=== PATIENT | female | born 1945 | race Caucasian/White ===

== ENCOUNTER 2020-10-06 10:02 | Outpatient (CLI) | payer MEDICARE, SELFPAY ==
--- NOTE | ~2020-10-06 | MM_ITS ---
EXAMINATION: MM screening estela BI w larissa HISTORY: Screening mammogram TECHNIQUE: Craniocaudal and mediolateral oblique 3-D tomosynthesis images were obtained and synthetic 2-D images were generated. CAD analysis was submitted and interpreted. COMPARISON: No prior mammogram is available for comparison at this institution. BREAST PARENCHYMAL COMPOSITION: There are scattered areas of fibroglandular density. FINDINGS: Scattered bilateral benign calcifications. There is no evidence of suspicious mass, calcifi cation, or architectural distortion to suggest malignancy in either breast. There has been no suspici ous interval change. IMPRESSION: 1. No mammographic evidence of malignancy. 2. Recommend routine screening mammography in one year. BI-RADS Category 2: Benign finding(s). Reviewed, dictated and finalized at location A.
== END 2020-10-06 10:03 | disposition home or self-care (01) ==
PROVIDERS: PCP Internal Medicine; Visit Provider Internal Medicine
DX: Z12.31 Encounter for screening mammogram for malignant neoplasm of breast (principal)
CPT/HCPCS: 77063; 77067

== ENCOUNTER 2020-12-21 13:32 | Outpatient (CLI) | payer MEDICARE, SELFPAY ==
--- NOTE | ~2020-12-21 | XR_ITS ---
EXAMINATION: XR abdomen/kub 1V EXAM DATE: 12/21/2020 14:03 INDICATION: History kidney stones. TECHNIQUE: Frontal projection of the upper abdomen, frontal projection lower abdomen/pelvis for inter pretation. Comparison is made to prior examination from 03/22/2019. FINDINGS: There are cholecystectomy clips. There is expected amount of colonic stool and gas. No s mall bowel dilation, nonobstructive bowel gas pattern. There are no suspicious calcifications ident ified. There is no organomegaly suspected. Mild to moderate lumbar levoscoliosis and bilateral hip primary osteoarthritis. Moderate lumbar spondylosis. Some left basilar granulomas. IMPRESSION: No suspicious calcifications. Reviewed, dictated and finalized at location A.
== END 2020-12-21 13:33 | disposition home or self-care (01) ==
LOC: ANHIMG 13:39
PROVIDERS: PCP Internal Medicine; Visit Provider Internal Medicine
DX: N20.0 Calculus of kidney (principal); M85.80 Other specified disorders of bone density and structure, unspecified site
CPT/HCPCS: 74018

== ENCOUNTER 2021-02-26 13:38 | Outpatient (CLI) | payer MEDICARE, SELFPAY ==
--- NOTE | ~2021-02-26 | DEXA_ITS ---
Bone Density Report Name: Madeleine Ward Age: 76 Sex: Female Ethnicity: White Date of : 1945 Indication: postmenopausal; height loss; Referring Provider: Riki, Kendra Study: Bone densitometry was performed. Exam Date: February 26, 2021 Accession number: [id number] There is hypertrophic degenerative change of the lumbar spine, which results in higher than expected spine bone mineral density measurements. These spine BMD and T score and Z score measurements are not reflective of the patient's true general bone mineral density. Bone Density: Region BMD T-score Z-score Classification AP Spine (L1, L4) 1.114 0.7 3.3 Normal Femoral Neck (Left) 0.661 -1.7 0.5 Osteopenia Total Hip (Left) 0.816 -1.0 0.9 Normal Total Hip Bilateral Avg 0.769 -1.4 0.5 Osteopenia Femoral Neck (Right) 0.651 -1.8 0.4 Osteopenia Total Hip (Right) 0.722 -1.8 0.1 Osteopenia World Health Organization criteria for BMD impression classify patients as: Normal (T-score at or above -1.0), Osteopenia (T-score between -1.0 and -2.5), or Osteoporosis (T-score at or below -2.5). 10-year Fracture Risk(1): Major Osteoporotic Fracture 14% Hip Fracture 3.4% Reported Risk Factors: [place] (), Neck BMD=0.651, BMI=26.0 (1) FRAX(R) Version 3.08. Fracture probability calculated for an untreated patient. Fracture probability may be lower if the patient has received treatment. Clinical Information Provided by Patient: Has used the following medications: Vitamin D, Calcium Patient maximum height was 64 Menopause Age: 48 No regular weight bearing exercise Drinks caffeinated beverages Onset of menses at age 11 Number of children 2 Impression: The patient has low bone mass, based on the Right Total Hip T-score. The patient has an estimated ten-year risk of hip fracture of 3.4% and an estimated ten-year risk of major fracture of 14%, based on the WHO FRAX algorithm. There is hypertrophic degenerative change of the lumbar spine, which results in higher than expected spine bone mineral density measurements. These spine BMD and T score and Z score measurements are not reflective of the patient's true general bone mineral density. Discussion: BONE DENSITY IS LOW AT ONE OR MORE SKELETAL SITES. THE PATIENT'S BMD AND CLINICAL RISK FACTORS CONTRIBUTE TO THIS PATIENT'S INCREASED RISK OF FRACTURE. This patient's lowest T-score is low at one or more skeletal sites. It meets the World Health Organization's (WHO) criteria for ?low bone mass? (T-score between -1.0 and -2.5). The patient's 10-year risk of hip fracture as calculated by FRAX exceeds the threshold where pharmacological therapy is recommended by the National Osteoporosis Foundation (NOF). However, all treatment decisions require clinical judgment and consideration of individual patient factors
== END 2021-02-26 13:39 | disposition home or self-care (01) ==
PROVIDERS: PCP Internal Medicine; Visit Provider Internal Medicine
DX: M85.89 Other specified disorders of bone density and structure, multiple sites (principal)
CPT/HCPCS: 77080

== ENCOUNTER 2021-11-02 07:17 | Outpatient (CLI) | payer MEDICARE, SELFPAY ==
--- NOTE | ~2021-11-02 | MM_ITS ---
EXAMINATION: MM screening estela BI w larissa HISTORY: Screening mammogram TECHNIQUE: Craniocaudal and mediolateral oblique 3-D tomosynthesis images were obtained and synthetic 2-D images were generated. CAD analysis was submitted and interpreted. COMPARISON: 10/06/2020 bilateral screening mammogram BREAST PARENCHYMAL COMPOSITION: The breasts are almost entirely fatty. FINDINGS: Scattered bilateral benign calcifications. There is no evidence of suspicious mass, calcifi cation, or architectural distortion to suggest malignancy in either breast. There has been no suspici ous interval change. IMPRESSION: 1. No mammographic evidence of malignancy. 2. Recommend routine screening mammography in one year. BI-RADS Category 2: Benign finding(s). Reviewed, dictated and finalized at location A.
== END 2021-11-02 07:18 | disposition home or self-care (01) ==
LOC: ANHIMG 07:22
PROVIDERS: PCP Internal Medicine; Visit Provider Internal Medicine
DX: Z12.31 Encounter for screening mammogram for malignant neoplasm of breast (principal)
CPT/HCPCS: 77063; 77067

== ENCOUNTER 2022-05-01 21:22 | Inpatient (IN) | payer MEDICARE, SELFPAY ==
--- NOTE | ~2022-05-01 | XR_ITS ---
EXAMINATION: XR chest 1V portable DATE: 05/01/2022 22:08 INDICATION: Fever. TECHNIQUE: A single frontal view of the chest was obtained. COMPARISON: None. FINDINGS: Calcified bilateral lung nodules and calcified hilar and mediastinal lymph nodes are consis tent with old granulomatous disease. No pleural effusion or pneumothorax. Cardiomegaly is noted. IMPRESSION: 1. Cardiomegaly. Reviewed, dictated and finalized at location A. ANICAL DESIGN TECHNICIAN IMPRESSION: 1. Cardiomegaly.
--- NOTE | ~2022-05-01 | CT_ITS ---
EXAMINATION: CT brain wo con DATE: 05/01/2022 22:13 INDICATION: Altered mental status. TECHNIQUE: Computed tomography (CT) of the head was performed without intravenous contrast. The mA wa s adjusted according to patient size. Iterative reconstruction technique was employed. The dose-lengt h product was 605.33 mGy-cm. COMPARISON: None FINDINGS: There are scattered areas of low attenuation in the cerebral white matter. There is a 14 x 10 mm calcified extra-axial mass overlying left frontoparietal region. There is no acute ischemic inf arct or intracranial hemorrhage. The ventricles are normal in size. 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 The paranasal sinuses are clear. The orbits a re normal. The mastoid air cells are normal. IMPRESSION: 1. Mild nonspecific cerebral white matter disease, which likely represents chronic small vessel ische ana disease. 2. 14 mm calcified extra-axial mass overlying left frontoparietal region, which may be a meningioma. Reviewed, dictated and finalized at location A. NER IMPRESSION: 1. Mild nonspecific cerebral white matter disease, which likely represents user interface designer loco small vessel ischemic disease. 2. 14 mm calcified extra-axial mass overlying left frontoparietal region, which may be a meningioma.
--- NOTE | 2022-05-01 21:24 | ECG_ITS ---
Measurements Intervals [place] Rate: 100 P: 51 LA: 174 QRS: 9 QRSD: 98 T: 30 QT: 342 QTc: 441 Interpretive Statements SINUS TACHYCARDIA DELAYED PRECORDIAL R/S TRANSITION BORDERLINE T WAVE ABNORMALITY- DIFFUSE LEADS BASELINE ARTIFACT- I, II, III BORDERLINE ECG NO PREVIOUS ECG AVAILABLE FOR COMPARISON Electronically Signed On 05-02-2022 7:19:06 DIALYSIS BIOMED TECHNICIAN by Tc Godinez D.O.
[2022-05-01 21:45] VITALS: BP 144/86; PULSE 101; RESP 16; TEMP 39.3; O2SAT 98
[2022-05-01 21:49] VITALS: PULSE 98
[2022-05-01 22:01] LABS: Appearance Urine Clear (Clear); Basophils Absolute Auto 0.1 K/mm3 (0.0-0.1); Basophils Percent Auto 0.4 % (0.2-1.2); Bilirubin Urine Negative (Negative); Blood Urine 2+ (Negative); Color Urine Yellow (Yellow); Eosinophils Absolute Auto 0.1 K/mm3 (0-0.3); Eosinophils Percent Auto 0.7 % (0-4.4); Glucose Urine UA Negative (Negative); Hematocrit 40.8 % (37.0-47.0); Hemoglobin 13.4 g/dL (12.0-15.0); Immature Granulocyte Absolute 0.62 K/mm3 (0.00-0.031); Immature Granulocyte Percent A 4.1 % (0-0.5); Ketones Urine 1+ mg/dL (Negative); Leukocyte Esterase Ur Trace LEU/UL (Negative); Lymphocytes Absolute Auto 1.13 K/mm3 (0.9-3.2); Lymphocytes Percent Auto 7.6 % (18.3-44.2); Mean Corpuscular HGB Conc 32.8 g/dl (32-36); Mean Corpuscular Hemoglobin 30.8 pg (26-34); Mean Corpuscular Volume 93.8 fl (80-100); Mean Platelet Volume 9.5 fl (7.4-10.4); Monocytes Absolute Auto 0.1 K/mm3 (0.1-0.6); Monocytes Percent Auto 0.9 % (2.6-8.5); Neutrophils Absolute Auto 12.9 K/mm3 (1.3-6.7); Neutrophils Percent Auto 86.3 % (45.5-73.1); Nitrate Urine Positive (Negative); Platelet Count Result 280 k/mm3 (150-375); Protein Urine 1+ mg/dL (Negative); Red Blood Count 4.35 M/mm3 (4.2-5.4); Red Cell Distribution Width 13.3 % (11.5-14.5); Specific Grav Ur 1.015 (1.001-1.035); Urobilinogen Urine 0.2 mg/dL (<2.0); pH Urine 5.5 (5.0-9.0)
[2022-05-01] MEDS: Please add drug allergy info to patient profile. 1 EACH XX (22:03)
--- NOTE | 2022-05-01 22:08 | PC.NURSE ---
Pt to CT scan via stretcher at this time.
[2022-05-01 22:10] LABS: Bacteria Urine Trace /hpf; Mucus Urine Rare /lpf; Prothrombin Time 12.7 Seconds (11.1-14.7)
[2022-05-01 22:11] LABS: Partial Thromboplastin Time 29.7 SECONDS (22.3-36.8)
[2022-05-01 22:13] LABS: Add Urine Microscopic? YES
[2022-05-01 22:24] LABS: Alanine Aminotransferase 22 U/L (6-35); Albumin Level 4.3 g/dL (3.5-5.1); Alkaline Phosphatase 101 U/L (38-126); Anion Gap 12 mmol/L (8-16); Aspartate Amino Transferase 21 U/L (14-36); Bilirubin,Total 1.2 mg/dL (0.2-1.3); Blood Urea Nitrogen 20 mg/dL (7-17); CRP 2.6 mg/dL (<1.0); Calcium 9.1 mg/dL (8.4-10.2); Carbon Dioxide 23 mmol/L (22-30); Chloride 105 mmol/L (98-107); Estimated CRCL calculation 53 ml/min; Estimated Glomerular Filt Rate > 60; Glucose 158 mg/dL (65-110); Sodium 140 mmol/L (137-145)
[2022-05-01 22:39] VITALS: TEMP 38.9
[2022-05-01 22:40] LABS: Influenza A QL RT-PCR Negative (Negative); Influenza B QL RT-PCR Negative (Negative); SARS-CoV-2 RNA PCR Negative
--- NOTE | 2022-05-01 22:40 | ED.AMS ---
HPI - Altered Mental Status General Chief Complaint: Altered Mental Status Stated Complaint: AMS, GENERALIZED WEAKNESS Time Seen by Provider: 05/01/22 21:42 History of Present Illness HPI narrative: 77-year-old female presenting to the emergency department for evaluation of altered mental status. Daughter states today the patient became less responsive and had decreased p.o. intake and was given unwilling to ambulate. Since the patient was increasingly weak and did have a ground-level fall. No loss of consciousness. Patient does not recall having the fall. Patient denies any complaints at this time. Patient does have a fever of 102.8 upon arrival. Fever was not treated prior to arrival. Related Data Allergies Allergy/AdvReac Type Severity Reaction Status Date / Time lisinopril Allergy Swelling Verified 05/01/22 22:02 Review of Systems Review of Systems: ROS unobtainable: Yes unobtainable due to mental status PMFSH Family History Family History (Updated 05/02/22 @ 04:16 by Alanna Ford RN) Other Unknown family medical history Social History Social History Smoking status: Never smoker Alcohol intake: never Substance use: never Lack of Transportation: No Lack of Food: Never True Current Housing: I Have Housing Concerned About Future Housing: No Difficulty Paying Gas/Electric Bills: No Difficulty Paying for Meds: No Currently Unemployed: No Education: Bachelor's Degree Difficulty w/ Childcare or Family Care: No Spiritual care concerns: No Exam Narrative: APPEARANCE: Well appearing, no pain, no distress, well-nourished. HEAD: normocephalic, atraumatic. EYES: PERRLA/EOMI, conjunctivae clear. NOSE: Normal no drainage NECK: Supple. No adenopathy, no masses. RESPIRATORY: Airway patent, respirations nonlabored. Clear to auscultation bilaterally, no rales, rhonchi, wheezing. CARDIOVASCULAR: Regular rate and rhythm without murmurs rubs or gallops. ABDOMINAL: Soft, nontender, nondistended, normal bowel sounds MUSCULOSKELETAL: Moves all extremities. Strength/ROM intact, No edema, No calf tenderness. NEURO: Alert. Cranial nerves II through XII intact. Grossly intact SKIN: Warm, dry. Normal Color Course Course Emergency Course: Patient was febrile 102.8 and has a leukocytosis of 15,000. Patient also has a urinary tract infection and this was treated with Rocephin. Blood and urine cultures were pending. Patient's potassium was 3.0 and this was replaced orally. Patient was negative for influenza and COVID. Patient's family is updated the results of the work-up and plan for admission. Case was discussed with the hospitalist and patient was accepted for admission. Patient was stable at time of transfer to the floor. Vital Signs Vital signs: Vital Signs Temperature 102.8 F H 05/01/22 21:45 Pulse Rate 101 H 05/01/22 21:45 Respiratory Rate 16 05/01/22 21:45 Blood Pressure 144/86 H 05/01/22 21:45 Pulse Oximetry 98 05/01/22 21:45 Oxygen Delivery Room Air 05/01/22 21:45 Temperature 98.0 F 05/02/22 03:38 Pulse Rate 81 05/02/22 03:38 Respiratory Rate 18 05/02/22 03:38 Blood Pressure 104/53 L 05/02/22 03:38 Pulse Oximetry 97 05/02/22 03:38 Oxygen Delivery Room Air 05/02/22 04:50 MDM - Altered Mental Status Lab Data Attestation: I reviewed the patient's lab results. Result diagrams: 05/01/22 21:48 05/01/22 21:48 Labs: Lab Results 05/01/22 05/01/22 05/01/22 Range/Units 21:48 21:48 21:48 WBC 15.0 H (4.5-10.0) K/mm3 RBC 4.35 (4.2-5.4) M/mm3 Hgb 13.4 (12.0-15.0) g/dL Hct 40.8 (37.0-47.0) % MCV 93.8 (80-100) fl MCH 30.8 (26-34) pg MCHC 32.8 (32-36) g/dl RDW 13.3 (11.5-14.5) % Plt Count 280 (150-375) k/mm3 MPV 9.5 (7.4-10.4) fl Immature Gran % (Auto) 4.1 H (0-0.5) % Neut % (Auto) 86.3 H (45.5-73.1) % Lymph % (Auto) 7.6 L (18.3-44.2) %
[2022-05-01 22:41] VITALS: BP 144/86; PULSE 94; RESP 23; TEMP 38.9; O2SAT 93
[2022-05-01 23:40] VITALS: BP 107/74; PULSE 93; RESP 15; TEMP 38.2; O2SAT 95
[2022-05-02] VITALS (11 sets, daily range): BP systolic 103–115; BP diastolic 53–68; PULSE 78–100; RESP 16–20; TEMP 36.7–38.2; O2SAT 92–97; BMI 27.6
[2022-05-02] MEDS: Please add drug allergy info to patient profile. 1 EACH XX (00:09)
[2022-05-02] MEDS: POTASSIUM CHLORIDE 20 MEQ PACKET (FOR LIQUID) 40 MEQ PO (00:57)
[2022-05-02] MEDS: SODIUM CHLORIDE 0.9% IV 1,000 ML 75 ML IV CONT (00:57)
--- NOTE | 2022-05-02 04:07 | ADMGEN ---
This patient, Madeleine Ward, was admitted to 2 Medical Room 249-01. Patient/family oriented to hospital policies and general routines including ID bracelet, bed and alarms, visiting hours, pain management, procedures, bathroom and other care routines, personal items, smoking policy, room service/diet, and visiting hours. Information on how to activate the Rapid Response Team has been discussed. Patient/Family are encouraged to report perceived risks to care and to ask questions if they do not understand what they are told or what they should do.
--- NOTE | 2022-05-02 06:29 | PC.NURSE ---
Pt stated she had a medication list but daughter took it home. I asked pt if daughter could be contacted at this hour and she said her daughter might still be asleep. Pt stated she would call her daughter around 0700 to ask her to bring in the medication list today. Will let day-shift nurse know about this plan.
[2022-05-02] MEDS: ONDANSETRON INJ 4 MG/2 ML VIAL IV PUSH (06:50)
[2022-05-02 08:36] LABS: Basophils Percent Auto 0.2 % (0.2-1.2); Eosinophils Absolute Auto 0.1 K/mm3 (0-0.3); Eosinophils Percent Auto 0.2 % (0-4.4); Hematocrit 39.6 % (37.0-47.0); Immature Granulocyte Absolute 0.12 K/mm3 (0.00-0.031); Immature Granulocyte Percent A 0.6 % (0-0.5); Lymphocytes Absolute Auto 0.63 K/mm3 (0.9-3.2); Mean Corpuscular HGB Conc 32.8 g/dl (32-36); Mean Corpuscular Hemoglobin 30.2 pg (26-34); Mean Corpuscular Volume 92.1 fl (80-100); Mean Platelet Volume 9.7 fl (7.4-10.4); Monocytes Absolute Auto 0.9 K/mm3 (0.1-0.6); Monocytes Percent Auto 4.1 % (2.6-8.5); Neutrophils Absolute Auto 19.5 K/mm3 (1.3-6.7); Neutrophils Percent Auto 91.9 % (45.5-73.1); Platelet Count Result 298 k/mm3 (150-375); Red Cell Distribution Width 13.5 % (11.5-14.5); White Blood Count 21.2 K/mm3 (4.5-10.0)
[2022-05-02 08:52] LABS: Anion Gap 15 mmol/L (8-16); Blood Urea Nitrogen 20 mg/dL (7-17); Calcium 8.9 mg/dL (8.4-10.2); Carbon Dioxide 24 mmol/L (22-30); Chloride 103 mmol/L (98-107); Estimated CRCL calculation 61 ml/min; Estimated Glomerular Filt Rate > 60; Glucose 143 mg/dL (65-110); Magnesium 1.8 mg/dL (1.6-2.3); Potassium 3.4 mmol/L (3.4-5.0); Sodium 142 mmol/L (137-145)
[2022-05-02] MEDS: ENOXAPARIN 40 MG/0.4 ML SYRINGE SUB-Q (09:43)
--- NOTE | 2022-05-02 12:49 | PC.NURSE ---
On 05/02/22, the student, [April Bassett], provided care and completed [facility] documentation on this patient. I have reviewed the student's documentation and agree with the findings.
[2022-05-02] MEDS: ACETAMINOPHEN 325 MG TABLET 650 MG PO (13:54)
--- NOTE | 2022-05-02 14:10 | PM.IMHP ---
H&P: HPI History of Present Illness Date/Time: 05/02/22 14:10 Chief Complaint: Altered mental status Narrative: date of service: 05/02/2022 Madeleine Ward a 77-year-old female with a history of hypertension, hyperlipidemia, vitamin-D deficiency, carotid artery stenosis, a bowel perforation s/p colectomy and subsequent reversal 10 years ago, and kidney stones who presented to the emergency department on 05/01/2022 with concerns of altered mental status. patient does exhibit some confusion, and this most history is obtained from her daughter who was present at the bedside. The patient lives at home with her daughter, Monique, and is typically independent. Yesterday when Monique came home in the afternoon, the patient stated she was not feeling well. Her daughter helped her to lie down and noticed that she was having trouble walking into her room. After she was put into bed, Monique went downstairs and could hear the patient yelling for help. She found her sliding out of bed but was able to catch her and help her to the floor. Fortunately she sustained no injuries, she did not hit her head, and she did not lose consciousness. At that time, her daughter called EMS who evaluated the patient. The patient then refused transport to emergency department. Later that evening around 9:00 p.m., Monique notice that she was more confused, stating she was not answering questions appropriately and she was incoherent. This prompted her to again call EMS and patient was brought to the emergency department for further evaluation. In the ED, she was febrile at 1:02 a.m. 0.8, heart rate 101, additional vital signs stable, white blood cell count 15, potassium 3.0, CRP 2.6, urinalysis abnormal with positive nitrates, trace leuk esterase, 10-15 white blood cells, CXR showed cardiomegaly, and head CT showed mild nonspecific cerebral white matter disease with possible meningioma. Upon my evaluation, the patient is feeling somewhat improved, though is still exhibiting some confusion. She was oriented to self, could see her age, knew the year and the president but could not state the month, day of the week, or location. She initially stated that she was in her bedroom. The patient denies dysuria or hematuria but does endorse possibly some urinary frequency. additionally, denies flank pain, back pain, suprapubic discomfort. She Endorses fevers and chills, denies sweats, nausea, or vomiting. She has been admitted to the hospitalist service for observation. Review of Systems Review of Systems: All systems reviewed with pertinent positives and negatives as per HPI. Additionally, the patient endorses weakness and her daughter has noticed difficulty ambulating recently over the past several weeks. The patient does use a cane for ambulation. Additionally, her daughter notes mild forgetfulness over the past 3-6 months. Patient denies shortness breath, cough, chest pain, abdominal pain. states last bowel movement was yesterday. daughter notes frequent headaches but patient denies headache at this time. REPLACED BY [facility] Past Medical History Medical History (Updated 05/02/22 @ 14:23 by Nadja Velasquez PA-C) Bowel perforation Carotid artery stenosis Hyperlipidemia Hypertension Kidney stones Vitamin D deficiency Surgical History Surgical History (Updated 05/02/22 @ 14:23 by Nadja Velasquez PA-C) History of colostomy reversal History of lithotripsy History of oophorectomy Unknown right vs left History of partial colectomy s/p reversal Family History Family History Father Hypertension Heart disease Social History Social History (Updated 05/02/22 @ 14:26 by Nadja Velasquez PA-C) Social History: Lives at home with her daughter. Typically independent with most daily activities. PCP is Dr. Kendra Lyn. Designates her daughter, Monique, as her surrogate decision maker. She would like to be a full code.
[2022-05-02] MEDS: cefTRIAXone 2 GM in SODIUM CHLORIDE 0.9% IV 100 ML 200 ML IVPB (15:28)
[2022-05-02] MEDS: carvediloL 6.25 MG TABLET PO (18:12)
[2022-05-02] MEDS: SIMVASTATIN 20 MG TABLET PO (20:17)
[2022-05-03 05:03] VITALS: BP 113/53; PULSE 64; RESP 16; TEMP 36.8; O2SAT 94
[2022-05-03 06:27] LABS: Basophils Percent Auto 0.3 % (0.2-1.2); Hematocrit 38.9 % (37.0-47.0); Hemoglobin 12.7 g/dL (12.0-15.0); Immature Granulocyte Absolute 0.08 K/mm3 (0.00-0.031); Immature Granulocyte Percent A 0.7 % (0-0.5); Lymphocytes Absolute Auto 1.01 K/mm3 (0.9-3.2); Lymphocytes Percent Auto 8.9 % (18.3-44.2); Mean Corpuscular HGB Conc 32.6 g/dl (32-36); Mean Corpuscular Hemoglobin 30.2 pg (26-34); Mean Corpuscular Volume 92.6 fl (80-100); Mean Platelet Volume 9.5 fl (7.4-10.4); Monocytes Absolute Auto 0.8 K/mm3 (0.1-0.6); Monocytes Percent Auto 7.1 % (2.6-8.5); Neutrophils Absolute Auto 9.5 K/mm3 (1.3-6.7); Platelet Count Result 242 k/mm3 (150-375); Red Cell Distribution Width 13.3 % (11.5-14.5); White Blood Count 11.4 K/mm3 (4.5-10.0)
[2022-05-03 06:40] LABS: Anion Gap 10 mmol/L (8-16); Blood Urea Nitrogen 17 mg/dL (7-17); Calcium 8.8 mg/dL (8.4-10.2); Carbon Dioxide 25 mmol/L (22-30); Chloride 104 mmol/L (98-107); Estimated CRCL calculation 61 ml/min; Estimated Glomerular Filt Rate > 60; Glucose 139 mg/dL (65-110); Magnesium 1.9 mg/dL (1.6-2.3); Potassium 3.3 mmol/L (3.4-5.0); Sodium 139 mmol/L (137-145)
[2022-05-03] MEDS: ENOXAPARIN 40 MG/0.4 ML SYRINGE SUB-Q (08:57)
[2022-05-03 08:58] VITALS: PULSE 81
[2022-05-03] MEDS: LOSARTAN POTASSIUM 50 MG TABLET PO (08:58)
[2022-05-03] MEDS: carvediloL 6.25 MG TABLET PO ×2 (08:58→17:35)
[2022-05-03] MEDS: ASPIRIN 81 MG ENTERIC TABLET PO (08:58)
[2022-05-03] MEDS: CHOLECALCIFEROL 1,000 UNITS TABLET 1000 UNITS PO (08:58)
[2022-05-03] MEDS: FUROSEMIDE 20 MG TABLET PO (08:58)
--- NOTE | 2022-05-03 10:09 | PM.IMPN ---
Progress Note: A&P Assessment and Plan (1) Septicemia: Code(s): A41.9 - Sepsis, unspecified organism Status: Acute Assessment and Plan: patient septic on presentation evident by leukocytosis, fever (T-max 102.8?), tachypnea. preliminary blood cultures with growth of E coli in 2/2 aerobic and anaerobic bottless source of infection felt to be urinary tract infection (E. coli identified in urine culture) continue ceftriaxone 2 g q24h remaining afebrile today and marked improvement in leukocytosis (WBC 11.4 today), tachypnea resolved. will discontinue IV fluids today as PO intake has improved and patient is afebrile so as to avoid over-hydration (2) Acute UTI: Code(s): N39.0 - Urinary tract infection, site not specified Status: Acute Assessment and Plan: Urinalysis abnormal on presentation and patient with urinary frequency urine culture with preliminary growth of E. coli continue IV ceftriaxone while awaiting urine culture results, tailor antibiotics to culture (3) Altered mental status: Code(s): R41.82 - Altered mental status, unspecified Status: Acute Assessment and Plan: Resolved. Patient A&Ox4 today and in good spirits felt to be secondary to UTI/septicemia continue to monitor mental status (4) Ambulatory dysfunction: Code(s): R26.2 - Difficulty in walking, not elsewhere classified Status: Acute Assessment and Plan: patient having increased difficulty getting around over the past several weeks suspect acute on chronic. Likely ongoing issue secondary to deconditioning, acutely worsened due to UTI fall precautions appreciate PT/OT evaluation (5) Hypertension: Code(s): I10 - Essential (primary) hypertension Status: Acute Assessment and Plan: blood pressures have been stable on low end of normal continue losartan and carvedilol monitor BP trends (6) Abnormal head CT: Code(s): R93.0 - Abnormal findings on diagnostic imaging of skull and head, not elsewhere classified Status: Acute Assessment and Plan: head CT showed 14 mm calcified extra-axial mass overlying the left frontoparietal region which may be meningioma will need outpatient follow-up for further monitoring/surveillance Subjective Date/time seen: 05/03/22 10:09 Interval history: Date of service: 05/03/2020 Mdaeleine Ward a 77-year-old? female with a history of hypertension, hyperlipidemia, vitamin-D deficiency, carotid artery stenosis, a bowel perforation s/p colectomy and subsequent reversal 10 years ago, and kidney stones who? is seen in follow-up for septicemia secondary to UTI. She is feeling better today. Is more clear headed and is not noting as much confusion. Daughter is at the bedside and agrees. Patient denies abdominal pain, flank pain, back pain, suprapubic tenderness. she is able to void without difficulty and denies dysuria, hematuria, urgency, frequency. Denies fevers, reports some mild chills last night. No sweats. She had some nausea yesterday evening but no episodes of nausea or emesis today and she was able to tolerate breakfast. Feels that her appetite is improving and her daughter notes that she ate much more today than she did all day yesterday. She still feels a little unsteady on her feet and has not been able to walk independently. She was able to get up from bed to the chair today with assistance. She felt just slightly lightheaded upon standing. Still feels weak. Denies headaches or body aches. Review of Systems Review of Systems: All systems reviewed & are unremarkable except as noted in HPI and below Exam Narrative: General: well-nourished, well-appearing 77-year-old female, sitting up in bed, comfortable, NARD Neuro: awake, alert and oriented x4, speech clear, no focal neuro deficits noted HEENMT: normocephalic, atraumatic, EOMI, sclerae anicteric R
[2022-05-03] MEDS: POTASSIUM CHLORIDE 20 MEQ TABLET PO (10:57)
[2022-05-03 12:36] VITALS: O2SAT 94
[2022-05-03] MEDS: cefTRIAXone 2 GM in SODIUM CHLORIDE 0.9% IV 100 ML 200 ML IVPB (13:35)
[2022-05-03 14:00] VITALS: BP 116/60; PULSE 66; RESP 18; TEMP 37.6; O2SAT 95
[2022-05-03 17:35] VITALS: PULSE 84
[2022-05-03 21:23] VITALS: BP 124/60; PULSE 73; RESP 16; TEMP 37.1; O2SAT 97
[2022-05-03] MEDS: SIMVASTATIN 20 MG TABLET PO (21:28)
[2022-05-04 05:34] LABS: Hematocrit 38.7 % (37.0-47.0); Hemoglobin 12.5 g/dL (12.0-15.0); Mean Corpuscular HGB Conc 32.3 g/dl (32-36); Mean Corpuscular Hemoglobin 29.8 pg (26-34); Mean Corpuscular Volume 92.1 fl (80-100); Mean Platelet Volume 9.9 fl (7.4-10.4); Platelet Count Result 238 k/mm3 (150-375); Red Cell Distribution Width 13.2 % (11.5-14.5); White Blood Count 13.4 K/mm3 (4.5-10.0)
[2022-05-04 05:49] LABS: Anion Gap 8 mmol/L (8-16); Blood Urea Nitrogen 15 mg/dL (7-17); Calcium 8.8 mg/dL (8.4-10.2); Carbon Dioxide 25 mmol/L (22-30); Chloride 105 mmol/L (98-107); Estimated CRCL calculation 61 ml/min; Estimated Glomerular Filt Rate > 60; Glucose 134 mg/dL (65-110); Potassium 3.4 mmol/L (3.4-5.0); Sodium 138 mmol/L (137-145)
[2022-05-04 06:18] VITALS: BP 143/67; PULSE 71; RESP 14; TEMP 36.6; O2SAT 96
[2022-05-04 08:28] VITALS: PULSE 73
[2022-05-04] MEDS: ASPIRIN 81 MG ENTERIC TABLET PO (08:28)
[2022-05-04] MEDS: carvediloL 6.25 MG TABLET PO ×2 (08:28→16:58)
[2022-05-04] MEDS: ENOXAPARIN 40 MG/0.4 ML SYRINGE SUB-Q (08:28)
[2022-05-04] MEDS: CHOLECALCIFEROL 1,000 UNITS TABLET 1000 UNITS PO (08:29)
[2022-05-04] MEDS: FUROSEMIDE 20 MG TABLET PO (08:29)
[2022-05-04] MEDS: LOSARTAN POTASSIUM 50 MG TABLET PO (08:29)
[2022-05-04] MEDS: POTASSIUM CHLORIDE 20 MEQ TABLET.ER PO (08:29)
--- NOTE | 2022-05-04 12:00 | PCPTNOTE ---
Attempted therapy session, Pt eating lunch, requested therapy to come back. Will attempt again.
[2022-05-04] MEDS: SALINE 0.65% NAS SOLN 44 ML BTL 1 SPRAY NASAL (12:12)
[2022-05-04] MEDS: cefTRIAXone 2 GM in SODIUM CHLORIDE 0.9% IV 100 ML 200 ML IVPB (13:33)
[2022-05-04 14:00] VITALS: BP 127/57; PULSE 70; RESP 18; TEMP 37; O2SAT 95
--- NOTE | 2022-05-04 15:43 | PM.IMPN ---
Progress Note: A&P Assessment and Plan (1) Septicemia: Code(s): A41.9 - Sepsis, unspecified organism Status: Acute Assessment and Plan: patient septic on presentation evident by leukocytosis, fever (T-max 102.8?), tachypnea. pblood cultures with growth of E coli in 2/2 aerobic and anaerobic bottles, susceptible to ceftriaxone source of infection felt to be urinary tract infection Continue ceftriaxone 2 g q24h Patient remaining afebrile today with overall improvement in leukocytosis (2) Acute UTI: Code(s): N39.0 - Urinary tract infection, site not specified Status: Acute Assessment and Plan: Urinalysis abnormal on presentation and patient with urinary frequency urine culture with growth of >100k E coli Continue IV ceftriaxone as above (3) Altered mental status: Code(s): R41.82 - Altered mental status, unspecified Status: Resolved Assessment and Plan: Resolved. Patient is A&O x4 today [place] to be secondary to UTI/septicemia (4) Ambulatory dysfunction: Code(s): R26.2 - Difficulty in walking, not elsewhere classified Status: Acute Assessment and Plan: Patient is having difficulty getting around and feels unsteady suspect acute on chronic. Likely ongoing issue secondary to dehydration/ generalized weakness, possibly acutely worsened due to UTI implement fall precautions proceed with PT/OT. Appreciate evaluation May need to consider SNF. Appreciate care coordination following (5) Hypertension: Code(s): I10 - Essential (primary) hypertension Status: Acute Assessment and Plan: blood pressures have been stable. Last BP 143/67 continue losartan and carvedilol monitor BP trends (6) Abnormal head CT: Code(s): R93.0 - Abnormal findings on diagnostic imaging of skull and head, not elsewhere classified Status: Acute Assessment and Plan: head CT showed no 40 mm calcified extra-axial mass overlying the left frontoparietal region which may be meningioma will need outpatient follow-up for further monitoring/surveillance Subjective Date/time seen: 05/04/22 15:43 Interval history: Date of service: 05/04/2020 Madeleine Ward a 77-year-old? female with a history of hypertension, hyperlipidemia, vitamin-D deficiency, carotid artery stenosis, a bowel perforation s/p colectomy and subsequent reversal 10 years ago, and kidney stones who? is seen in follow-up for septicemia secondary to UTI. She is feeling well today. She did not sleep well last night and feels a bit tired today. Also, she has developed sinus congestion today. She denies cough, shortness of breath, fever, or chills. Denies dysuria, hematuria, urgency, frequency. No nausea or vomiting. She does endorse difficulty getting around. Today she had trouble getting out of bed and to the bedside commode, even with assistance. She states she has been having discharge full more and does not feel steady on her feet. She does not feel at this time that she could return home safely. Review of Systems Review of Systems: All systems reviewed & are unremarkable except as noted in HPI and below Exam Narrative: General: well-nourished, well-appearing 77-year-old female, sitting up in bed, comfortable, NARD Neuro: awake, alert and oriented x4, speech clear, no focal neuro deficits noted HEENMT: normocephalic, atraumatic, EOMI, sclerae anicteric Respiratory: clear to auscultation bilaterally, nonlabored breathing Cardio: regular rate, regular rhythm with S1-S2 Abdomen: nondistended, normoactive bowel sounds, soft, nontender to palpation Extremities: no edema, erythema, or tenderness to palpation, DP pulses 2+ bilaterally Skin: no rashes or lesions, warm and dry Psych: appropriate mood and affect, judgment and insight intact Objective Data Vital Signs Vital Signs: Vital Signs - 24 hr 05/03/22 17:35 05/03/22
[2022-05-04 16:58] VITALS: PULSE 73
[2022-05-04] MEDS: SIMVASTATIN 20 MG TABLET PO (20:30)
[2022-05-04 21:37] VITALS: BP 134/69; PULSE 66; RESP 17; TEMP 36.8; O2SAT 96
[2022-05-05 05:08] VITALS: BP 148/59; PULSE 62; RESP 17; TEMP 36.4; O2SAT 96
[2022-05-05 06:39] LABS: Hematocrit 44.4 % (37.0-47.0); Hemoglobin 14.4 g/dL (12.0-15.0); Mean Corpuscular HGB Conc 32.4 g/dl (32-36); Mean Corpuscular Hemoglobin 30.1 pg (26-34); Mean Corpuscular Volume 92.9 fl (80-100); Mean Platelet Volume 9.6 fl (7.4-10.4); Platelet Count Result 307 k/mm3 (150-375); Red Blood Count 4.78 M/mm3 (4.2-5.4); Red Cell Distribution Width 13.2 % (11.5-14.5); White Blood Count 10.4 K/mm3 (4.5-10.0)
[2022-05-05 07:05] LABS: Anion Gap 11 mmol/L (8-16); Blood Urea Nitrogen 17 mg/dL (7-17); Calcium 9.4 mg/dL (8.4-10.2); Carbon Dioxide 26 mmol/L (22-30); Chloride 103 mmol/L (98-107); Estimated CRCL calculation 53 ml/min; Estimated Glomerular Filt Rate > 60; Glucose 125 mg/dL (65-110); Potassium 3.4 mmol/L (3.4-5.0); Sodium 140 mmol/L (137-145)
[2022-05-05] MEDS: CHOLECALCIFEROL 1,000 UNITS TABLET 1000 UNITS PO (08:41)
[2022-05-05 08:42] VITALS: PULSE 83
[2022-05-05] MEDS: carvediloL 6.25 MG TABLET PO ×2 (08:42→17:22)
[2022-05-05] MEDS: ENOXAPARIN 40 MG/0.4 ML SYRINGE SUB-Q (08:44)
[2022-05-05] MEDS: ASPIRIN 81 MG ENTERIC TABLET PO (08:44)
[2022-05-05] MEDS: POTASSIUM CHLORIDE 20 MEQ TABLET.ER PO (08:44)
[2022-05-05] MEDS: FUROSEMIDE 20 MG TABLET PO (08:44)
[2022-05-05] MEDS: LOSARTAN POTASSIUM 50 MG TABLET PO (08:44)
[2022-05-05] MEDS: cefTRIAXone 2 GM in SODIUM CHLORIDE 0.9% IV 100 ML 200 ML IVPB (13:18)
[2022-05-05 14:00] VITALS: BP 133/61; PULSE 72; RESP 16; TEMP 36.9; O2SAT 95
--- NOTE | 2022-05-05 16:50 | PM.IMPN ---
Progress Note: A&P Assessment and Plan (1) Septicemia: Code(s): A41.9 - Sepsis, unspecified organism Status: Acute Assessment and Plan: patient septic on presentation evident by leukocytosis, fever (T-max 102.8?), tachypnea. blood cultures with growth of E coli in 2/2 aerobic and anaerobic bottles source of infection felt to be urinary tract infection received ceftriaxone 2 g q24h #4 today transition to PO Levaquin for total of 7 days of treatment per ID PharmD recommendations Patient remaining afebrile >72 hrs with overall improvement in leukocytosis (2) Acute UTI: Code(s): N39.0 - Urinary tract infection, site not specified Status: Acute Assessment and Plan: Urinalysis abnormal on presentation and patient with urinary frequency urine culture with growth of >100k E coli Transition to PO Levaquin as above based on susceptibility results (3) Altered mental status: Code(s): R41.82 - Altered mental status, unspecified Status: Resolved Assessment and Plan: Resolved. Patient is A&O x4 today [place] to be secondary to UTI/septicemia (4) Ambulatory dysfunction: Code(s): R26.2 - Difficulty in walking, not elsewhere classified Status: Acute Assessment and Plan: Patient is having difficulty getting around and feels unsteady suspect acute on chronic. Likely ongoing issue secondary to dehydration/ generalized weakness, possibly acutely worsened due to UTI implement fall precautions proceed with PT/OT. Appreciate evaluation planning for SNF. Awaiting insurance authorization. (5) Hypertension: Code(s): I10 - Essential (primary) hypertension Status: Acute Assessment and Plan: blood pressures have been stable. Last BP 133/61 continue losartan and carvedilol monitor BP trends (6) Abnormal head CT: Code(s): R93.0 - Abnormal findings on diagnostic imaging of skull and head, not elsewhere classified Status: Acute Assessment and Plan: head CT showed no 40 mm calcified extra-axial mass overlying the left frontoparietal region which may be meningioma will need outpatient follow-up for further monitoring/surveillance Subjective Date/time seen: 05/05/22 16:50 Interval history: Date of service: 05/05/2020 Madeleine Ward a 77-year-old? female with a history of hypertension, hyperlipidemia, vitamin-D deficiency, carotid artery stenosis, a bowel perforation s/p colectomy and subsequent reversal 10 years ago, and kidney stones who? is seen in follow-up for septicemia secondary to UTI. she is doing very well today. Notes overall improvement and she is feeling back to her usual state of health. She is in good spirits. Tolerating her diet. No urinary symptoms. No shortness of breath, cough, chest pain, abdominal pain Review of Systems Review of Systems: All systems reviewed & are unremarkable except as noted in HPI and below Exam Narrative: General: well-nourished, well-appearing 77-year-old female, sitting up in bed, comfortable, NARD Neuro: awake, alert and oriented x4, speech clear, no focal neuro deficits noted HEENMT: normocephalic, atraumatic, EOMI, sclerae anicteric Respiratory: clear to auscultation bilaterally, nonlabored breathing Cardio: regular rate, regular rhythm with S1-S2 Abdomen: nondistended, normoactive bowel sounds, soft, nontender to palpation Extremities: no edema, erythema, or tenderness to palpation, DP pulses 2+ bilaterally Skin: no rashes or lesions, warm and dry Psych: appropriate mood and affect, judgment and insight intact Objective Data Vital Signs Vital Signs: Vital Signs - 24 hr 05/04/22 16:58 05/04/22 20:00 05/04/22 21:37 Temperature 98.3 F Pulse Rate 73 66 Respiratory Rate 17 Blood Pressure 134/69 Pulse Oximetry 96 Oxygen Delivery Room Air 05/05/22 05:08 05/05/22 08:42 05/05/22 08:45 Temperature 97.6 F
[2022-05-05 17:22] VITALS: PULSE 66
[2022-05-05] MEDS: SIMVASTATIN 20 MG TABLET PO (21:37)
[2022-05-05 22:39] VITALS: BP 137/54; PULSE 64; RESP 18; TEMP 36.4; O2SAT 95
[2022-05-06 05:58] LABS: Anion Gap 14 mmol/L (8-16); Blood Urea Nitrogen 16 mg/dL (7-17); Calcium 9.1 mg/dL (8.4-10.2); Carbon Dioxide 26 mmol/L (22-30); Chloride 103 mmol/L (98-107); Estimated CRCL calculation 61 ml/min; Estimated Glomerular Filt Rate > 60; Glucose 120 mg/dL (65-110); Potassium 3.3 mmol/L (3.4-5.0); Sodium 143 mmol/L (137-145)
[2022-05-06 06:26] LABS: Hematocrit 41.2 % (37.0-47.0); Hemoglobin 13.3 g/dL (12.0-15.0); Mean Corpuscular HGB Conc 32.3 g/dl (32-36); Mean Corpuscular Hemoglobin 30.4 pg (26-34); Mean Corpuscular Volume 94.1 fl (80-100); Mean Platelet Volume 9.8 fl (7.4-10.4); Platelet Count Result 311 k/mm3 (150-375); Red Blood Count 4.38 M/mm3 (4.2-5.4); Red Cell Distribution Width 13.2 % (11.5-14.5); White Blood Count 9.7 K/mm3 (4.5-10.0)
[2022-05-06 06:45] VITALS: BP 148/64; PULSE 66; RESP 18; TEMP 36.3; O2SAT 96
[2022-05-06] MEDS: POTASSIUM CHLORIDE 20 MEQ PACKET (FOR LIQUID) PO (08:01)
[2022-05-06] MEDS: ASPIRIN 81 MG ENTERIC TABLET PO (08:02)
[2022-05-06 08:03] VITALS: PULSE 66
[2022-05-06] MEDS: carvediloL 6.25 MG TABLET PO (08:03)
[2022-05-06] MEDS: ENOXAPARIN 40 MG/0.4 ML SYRINGE SUB-Q (08:04)
[2022-05-06] MEDS: FUROSEMIDE 20 MG TABLET PO (08:04)
[2022-05-06] MEDS: CHOLECALCIFEROL 1,000 UNITS TABLET 1000 UNITS PO (08:04)
[2022-05-06] MEDS: levoFLOXacin 750 MG TABLET PO (08:05)
[2022-05-06] MEDS: LOSARTAN POTASSIUM 50 MG TABLET PO (08:05)
[2022-05-06 14:00] VITALS: BP 123/64; PULSE 90; RESP 18; TEMP 36.8; O2SAT 94
--- NOTE | 2022-05-06 14:22 | PM.DS ---
DS: Admitting Diagnosis Discharge Date 05/06/2022 Admitting Diagnosis Septicemia DS: Discharge Diagnosis Discharge Diagnosis (1) Septicemia: Code(s): A41.9 - Sepsis, unspecified organism Status: Acute Assessment and Plan: patient septic on presentation evident by leukocytosis, fever (T-max 102.8?), tachypnea. blood cultures with growth of E coli in 2/2 aerobic and anaerobic bottles source of infection felt to be urinary tract infection received ceftriaxone 2 g q24h during admission then was transitioned to PO Levaquin for a total of 7 days of antibiotic therapy given appropriate response to treatment per ID PharmD recommendations. fever, tachypnea, and leukocytosis resolved. (2) Acute UTI: Code(s): N39.0 - Urinary tract infection, site not specified Status: Acute Assessment and Plan: Urinalysis abnormal on presentation and patient complained urinary frequency urine culture with growth of >100k E coli continue PO Levaquin as above based on susceptibility results (3) Altered mental status: Code(s): R41.82 - Altered mental status, unspecified Status: Resolved Assessment and Plan: Resolved. Patient is A&O x4 today [place] to be secondary to UTI/septicemia (4) Ambulatory dysfunction: Code(s): R26.2 - Difficulty in walking, not elsewhere classified Status: Acute Assessment and Plan: Patient complained of difficulty getting around and feeling unsteady, worsened over about 1 week prior to admission suspect acute on chronic. Likely ongoing issue secondary to deconditioning/generalized weakness, likely acutely worsened due to UTI fall precautions implemented and discussed participated in PT/OT during admission initially planned for SNF, however completed a peer to peer on 05/06 and SNF was denied. Family opted for return home. Pts son will be coming to stay with her while her daughter (whom she lives with) is at work during the day. (5) Hypertension: Code(s): I10 - Essential (primary) hypertension Status: Acute Assessment and Plan: blood pressures remained stable. continue losartan and carvedilol (6) Abnormal head CT: Code(s): R93.0 - Abnormal findings on diagnostic imaging of skull and head, not elsewhere classified Status: Acute Assessment and Plan: head CT showed 14 mm calcified extra-axial mass overlying the left frontoparietal region which may be meningioma will need outpatient follow-up for further monitoring/surveillance in 3-6 months from baseline MRI DS: Summary Hospital Course Hospital Course: Date of admission: 05/01/2022 Date of discharge: 05/06/2022 Madeleine Ward a 77-year-old? female with a history of hypertension, hyperlipidemia, vitamin-D deficiency, carotid artery stenosis, a bowel perforation s/p colectomy and subsequent reversal 10 years ago, and kidney stones who presented to the emergency department on 05/01/2022 with concerns of altered mental status. In the ED, she was febrile at 102.8, heart rate 101, additional vital signs stable, white blood cell count 15, potassium 3.0,? CRP 2.6, urinalysis abnormal with positive nitrates, trace leuk esterase, 10-15 white blood cells, CXR showed cardiomegaly, and head CT showed mild nonspecific cerebral white matter disease with possible meningioma. She was admitted to hospitalist service for further evaluation and management. Please see above for further details. She was treated with antibiotics for septicemia secondary to UTI and had symptomatic improvement and. She will continue taking antibiotics at home. She did have some ambulatory concerns participated in PT/OT during admission. Ultimately, patient felt comfortable with return home where she lives with her daughter. Discussed with the patient and her daughter worrisome signs and symptoms for which to return and she was educated on her medications. She was
== END 2022-05-06 14:41 | disposition home health service (06) | DRG 872 ==
LOC: ANHED 23:14 → ANH2MED 05-02 02:57
PROVIDERS: Emergency Medicine; Physician Assistant; Admitting Provider Internal Medicine; Emergency Provider Emergency Medicine; PCP Internal Medicine; Visit Provider Family Medicine
DX: A41.51 Sepsis due to Escherichia coli [E. coli] (principal); N39.0 Urinary tract infection, site not specified; R26.2 Difficulty in walking, not elsewhere classified; R41.82 Altered mental status, unspecified; I10 Essential (primary) hypertension; D32.0 Benign neoplasm of cerebral meninges; I65.29 Occlusion and stenosis of unspecified carotid artery; E78.5 Hyperlipidemia, unspecified; Z20.822 Contact with and (suspected) exposure to COVID-19; Z82.49 Family history of ischemic heart disease and other diseases of the circulatory system; Z79.82 Long term (current) use of aspirin; Z79.899 Other long term (current) drug therapy; Z88.8 Allergy status to other drugs, medicaments and biological substances
CPT/HCPCS: 36415; 51701; 70450; 71045; 80048; 80053; 81001; 83605; 83735; 85025; 85027; 85610; 85730; 86140; 87040; 87077; 87086; 87186; 87636; 93005; 96365; 96372; 96375; 97110; 97161; 97165; 97530; 97535; 99285; A9270; G0378; J0131; J0696; J1650; J2405; J7030

== ENCOUNTER 2022-05-08 09:03 | Outpatient (CLI) | payer MEDICARE, SELFPAY ==
--- NOTE | ~2022-05-08 | XR_ITS ---
XR chest 2V 05/08/2022 09:32 Indication: Cough Procedure: PA and lateral views of the chest Comparison: 05/01/2022 Findings: Heart size normal. There is atherosclerosis of the aorta. There is right basilar atelectasi s. No focal pneumonia, edema or pneumothorax. There are bilateral calcified granulomas. Impression: 1: Right basilar atelectasis. Reviewed, dictated and finalized at location A. EM SAFET[employer] ENGINEER Impression: 1: Right basilar atelectasis.
== END 2022-05-08 09:04 | disposition home or self-care (01) ==
PROVIDERS: PCP Internal Medicine; Visit Provider Internal Medicine
DX: R05.9 Cough, unspecified (principal); J98.11 Atelectasis
CPT/HCPCS: 71046

== ENCOUNTER 2022-11-19 13:22 | Emergency (ER) | payer MEDICARE, SELFPAY ==
--- NOTE | ~2022-11-19 | CT_ITS ---
EXAMINATION: CT abdomen pelvis w con DATE: 11/19/2022 15:44 INDICATION: Low back pain. Urinary frequency. TECHNIQUE: Computed tomography (CT) of the abdomen and pelvis was performed without intravenous contr ast. Automated exposure control and iterative reconstruction technique were employed. The dose-length product was 413.94 mGy-cm. COMPARISON: None FINDINGS: Mild dependent atelectasis in bilateral lower lobes. Calcified lingular nodule consistent with old gr anulomatous disease. Mild cardiomegaly. Atherosclerotic coronary artery calcification. No pericardial or pleural effusion. Small sliding-type hiatal hernia. Cholecystectomy clips the gallbladder fossa. 1.4 cm enhancing lesion in segment IVb of the liver. Multiple splenic calcifications consistent with old granulomatous disease. A few dystrophic calcification in the body and tail of the pancreas consis tent with sequela of chronic pancreatitis. Bilateral adrenal glands are normal. Several punctate <1 m m bilateral renal stones with slightly larger 2 mm stone at the lower pole of the right kidney. There is mild bilateral hydronephrosis on the right potentially related to mass effect from a 7.9 cm parap elvic cyst. Transition point and the left at the ureteral pelvic junction with no evident obstructing stone or mass. No stones seen along the course of the bilateral ureters. Bladder is normal. Uterus a nd right adnexa are unremarkable. Left ovary is not visualized and likely surgically absent as there are surgical clips both at the left adnexa and more proximally along the left gonadal vein overlying the left psoas muscle. There is short segment of nonobstructed small bowel extends into a relatively wide mouthed small left spigelian hernia. There is also a small fat-containing left inguinal hernia. There are few scattered colonic diverticula without adjacent inflammatory stranding to suggest divert iculitis. Normal appendix. No free intraperitoneal gas or fluid. No pathologically enlarged abdominal or pelvic lymphadenopathy. There is calcified atherosclerosis of the aorta and many of the other art eries. levoscoliosis with moderate to severe spondylosis. IMPRESSION: 1. Bilateral nephrolithiasis and mild bilateral hydronephrosis with no evident obstructing stones or mass at the transition point in the left which is at the ureteropelvic junction which on the right ma y be related to mass effect from a 7.9 cm parapelvic cyst. 2. Short loop of small bowel extends into a left lower quadrant spigelian hernia. No bowel obstructio n. 3. Small sliding-type hiatal hernia. 4. Nonspecific 1.4 cm nodule in segment IVb of the liver was of greater attenuation than the surround ing enhancing liver. Recommend further evaluation with pre and postcontrast MRI or CT, the former wou ld be favored. 5. Diverticulosis. Reviewed, dictated and finalized at location B. IMPRESSION: 1. Bilateral nephrolithiasis and mild bilateral hydronephrosis with no evident obstructing stones or mass at the transition point in the left which is at the ureteropelvic junction which on the right may be related to mass effect from a 7.9 cm parapelvic cyst. 2. Short loop of small bowel extends into a left lower quadrant spigelian herni a. No bowel obstruction. 3. Small sliding-type hiatal hernia. 4. Nonspecific 1.4 cm nodule in segment IVb of the liver was of greater attenua tion than the surrounding enhancing liver. Recommend further evaluation with pr e and postcontrast MRI or CT, the former would be favored. 5. Diverticulosis.
[2022-11-19 13:38] VITALS: BP 145/77; PULSE 97; RESP 18; TEMP 36.9; O2SAT 97
--- NOTE | 2022-11-19 13:48 | PC.NURSE ---
Pt is wheeled into ER by a wheelchair c/o a possible UTI. Pt states that she has been dealing with UTIs monthly since being hospitalized in Apr of last year for a UTI. Family states pt starts showing signs of confusion and increased falls when pt has had a UTI in the past. Family states pt was taken to Urgent Care last week and diagnosed with a UTI and finished Macrobid this past Thursday. Pt states that she has had an increase in frequency and urgency. States she has lower ABD pain that has radiated around to her flanks. Denies any nausea or vomiting at this time.
[2022-11-19 14:14] LABS: Appearance Urine Cloudy (Clear); Bacteria Urine None Seen /hpf; Bilirubin Urine Negative (Negative); Blood Urine 1+ (Negative); Color Urine Yellow (Yellow); Glucose Urine UA Negative (Negative); Ketones Urine Negative (Negative); Leukocyte Esterase Ur 2+ LEU/UL (Negative); Nitrate Urine Negative (Negative); Protein Urine Negative (Negative); Specific Grav Ur 1.019 (1.001-1.035); Squamous Epithelial Cell Urine Few /hpf (Few); Urobilinogen Urine 0.2 mg/dL (<2.0)
[2022-11-19 14:19] LABS: Add Urine Microscopic? YES
[2022-11-19 14:52] LABS: Basophils Percent Auto 0.3 % (0.2-1.2); Eosinophils Absolute Auto 0.2 K/mm3 (0-0.3); Eosinophils Percent Auto 2.1 % (0-4.4); Hematocrit 45.5 % (37.0-47.0); Hemoglobin 14.8 g/dL (12.0-15.0); Immature Granulocyte Absolute 0.07 K/mm3 (0.00-0.031); Immature Granulocyte Percent A 0.7 % (0-0.5); Lymphocytes Absolute Auto 2.37 K/mm3 (0.9-3.2); Lymphocytes Percent Auto 24.8 % (18.3-44.2); Mean Corpuscular HGB Conc 32.5 g/dl (32-36); Mean Corpuscular Hemoglobin 30.7 pg (26-34); Mean Corpuscular Volume 94.4 fl (80-100); Mean Platelet Volume 9.2 fl (7.4-10.4); Monocytes Absolute Auto 0.8 K/mm3 (0.1-0.6); Monocytes Percent Auto 8.1 % (2.6-8.5); Neutrophils Absolute Auto 6.1 K/mm3 (1.3-6.7); Platelet Count Result 376 k/mm3 (150-375); Red Blood Count 4.82 M/mm3 (4.2-5.4); Red Cell Distribution Width 13.2 % (11.5-14.5); White Blood Count 9.6 K/mm3 (4.5-10.0)
--- NOTE | 2022-11-19 15:04 | ED.FEMALEGU ---
HPI - Female Genitourinary General Chief complaint: Urogenital-Female <Andrea Reza PA-C - Last Filed: 11/19/22 18:39> Stated complaint: possible uti <Andrea Reza PA-C - Last Filed: 11/19/22 18:39> Time Seen by Provider: 11/19/22 14:03 <Andrea Reza PA-C - Last Filed: 11/19/22 18:39> Source: patient <Andrea Reza PA-C - Last Filed: 11/19/22 18:39> Mode of arrival: ambulatory <Andrea Reza PA-C - Last Filed: 11/19/22 18:39> Limitations: no limitations <Andrea Reza PA-C - Last Filed: 11/19/22 18:39> History of Present Illness HPI Narrative: This is a 77-year-old female who presents to the ED with chief complaint of urinary frequency, lower abdominal pain and lower back pain onset x7 days. Patient was seen initially and given a Macrobid prescription in which she fully completed, and she is still having complaints. She is concerned because she has had sepsis with UTIs in the past. Family member is here and states that patient has had a couple of episodes at home in the past week where she has been more confused. Patient denies any fevers, chills, nausea, vomiting, diarrhea, LOC, chest pain, shortness of breath, cough. <Andrea Reza PA-C - Last Filed: 11/19/22 18:39> Related Data Home medications: Home Medications Medication Instructions Recorded Confirmed aspirin 81 mg tablet,delayed 81 mg PO DAILY 05/02/22 05/02/22 release carvedilol 6.25 mg tablet (Coreg) 6.25 mg PO BID 05/02/22 05/02/22 cholecalciferol (vitamin D3) 25 25 mcg PO DAILY 05/02/22 05/02/22 mcg (1,000 unit) capsule (Vitamin D3) furosemide 20 mg tablet (Lasix) 20 mg PO DAILY 05/02/22 05/02/22 losartan 50 mg tablet (Cozaar) 50 mg PO DAILY 05/02/22 05/02/22 omega 2-hyz-lwt-fish oil 100 1 cap PO DAILY 05/02/22 05/02/22 mg-160 mg-1,000 mg capsule (Fish Oil) simvastatin 20 mg tablet (Zocor) 20 mg PO HS 05/02/22 05/02/22 <Andrea Reza PA-C - Last Filed: 11/19/22 18:39> Allergies/Adverse reactions: Allergies Allergy/AdvReac Type Severity Reaction Status Date / Time codeine Allergy Unknown Verified 11/19/22 13:56 lisinopril Allergy Swelling Verified 11/19/22 13:23 meperidine [From Demerol] Allergy Unknown Verified 11/19/22 13:56 prednisone Allergy Unknown Verified 11/19/22 13:56 <Andrea Reza PA-C - Last Filed: 11/19/22 18:39> Review of Systems Review of Systems: CONSTITUTIONAL: Denies fever, chills, or sweats. EYES: Denies visual changes, redness, or discharge. ENT: Denies rhinorrhea, congestion, sore throat, or otalgia. CARDIOVASCULAR: Denies chest pain, palpitations, or edema. RESPIRATORY: Denies cough or dyspnea. GASTROINTESTINAL: See HPI GENITOURINARY: See HPI SKIN: Denies rash or itching. MUSCULOSKELETAL: Denies back pain, joint pain, or myalgia. NEUROLOGIC: Denies headache, numbness, dizziness, or weakness. PSYCHIATRIC: Denies anxiety or depression. <Andrea Reza PA-C - Last Filed: 11/19/22 18:39> [facility] Past Medical History Medical History: Medical History (Updated 11/19/22 @ 16:16 by Andrea Reza PA-C) Bowel perforation Carotid artery stenosis Hyperlipidemia Hypertension Kidney stones Vitamin D deficiency <Andrea Reza PA-C - Last Filed: 11/19/22 18:39> Surgical History Surgical History: Surgical History (Updated 05/02/22 @ 14:23 by Nadja Velasquez PA-C) History of colostomy reversal History of lithotripsy History of oophorectomy Unknown right vs left History of partial colectomy s/p reversal <Andrea Reza PA-C - Last Filed: 11/19/22 18:39> Family History Family History: Family History Father Hypertension Heart disease <Andrea Reza PA-C - Last Filed: 11/19/22 18:39> Social History Social History: Social History (Updated 05/02/22 @ 14:26 by Nadja Velasquez PA-C) Social History: Lives at home with her daughter. Typically independent
[2022-11-19 15:27] LABS: Alanine Aminotransferase 22 U/L (6-35); Albumin Level 4.2 g/dL (3.5-5.1); Alkaline Phosphatase 75 U/L (38-126); Anion Gap 6 mmol/L (8-16); Aspartate Amino Transferase 22 U/L (14-36); Bilirubin,Total 0.6 mg/dL (0.2-1.3); Blood Urea Nitrogen 25 mg/dL (7-17); Calcium 9.2 mg/dL (8.4-10.2); Carbon Dioxide 30 mmol/L (22-30); Chloride 105 mmol/L (98-107); Estimated CRCL calculation 44 ml/min; Estimated Glomerular Filt Rate > 60; Glucose 140 mg/dL (65-110); Potassium 3.6 mmol/L (3.4-5.0); Sodium 141 mmol/L (137-145)
== END 2022-11-19 16:58 | disposition home or self-care (01) ==
PROVIDERS: Emergency Medicine; Emergency Provider Physician Assistant; PCP Internal Medicine
DX: N39.0 Urinary tract infection, site not specified (principal); I65.29 Occlusion and stenosis of unspecified carotid artery; E78.5 Hyperlipidemia, unspecified; I10 Essential (primary) hypertension; E55.9 Vitamin D deficiency, unspecified; Z87.442 Personal history of urinary calculi; Z90.49 Acquired absence of other specified parts of digestive tract; Z79.82 Long term (current) use of aspirin
CPT/HCPCS: 36415; 74177; 80053; 81001; 85025; 87086; 96365; 99284; J0696; Q9967

== ENCOUNTER 2022-12-24 11:56 | Outpatient (CLI) | payer MEDICARE, SELFPAY ==
--- NOTE | ~2022-12-24 | MM_ITS ---
EXAMINATION: MM screening [facility] BI w larissa HISTORY: Screening mammogram TECHNIQUE: Craniocaudal and mediolateral oblique 3-D tomosynthesis images were obtained and synthetic 2-D images were generated. CAD analysis was submitted and interpreted. COMPARISON: 11/02/2021, 10/06/2020 BREAST PARENCHYMAL COMPOSITION: The breasts are almost entirely fatty. FINDINGS: No suspicious mass, calcification, or architectural distortion are identified in either andrea ast to suggest malignancy. There has been no suspicious interval change. IMPRESSION: 1. No mammographic evidence of malignancy. 2. Recommend routine screening mammography in one year. BI-RADS Category 1: Negative Reviewed, dictated and finalized at location A.
== END 2022-12-24 11:57 | disposition home or self-care (01) ==
LOC: ANHIMG 11:58
PROVIDERS: PCP Internal Medicine; Visit Provider Internal Medicine
DX: Z12.31 Encounter for screening mammogram for malignant neoplasm of breast (principal)
CPT/HCPCS: 77063; 77067